=== PATIENT | male | born 1945 | race Caucasian/White ===

== ENCOUNTER → 2022-04-26 13:31 | Outpatient (CLI) | payer MEDICARE, SELFPAY ==
--- NOTE | ~2022-04-26 | XR_ITS ---
EXAM: [id number] DATE: 04/26/2022 14:00 HISTORY: Pain in left knee . COMPARISON: None available. FINDINGS: Normal mineralization. No fracture or dislocation. No lytic or blastic lesion. Mild medial joint space narrowing. Tricompartmental osteophytosis. Chondrocalcinosis. Minimal quadriceps entheso frederick. Small volume joint fluid collection. No erosion or periosteal change. Vascular calcifications. IMPRESSION: Mild tricompartmental left knee arthritis. Small left knee joint effusion. Reviewed, dictated and finalized at location [facility]. EY DOCTOR IMPRESSION: Mild tricompartmental left knee arthritis. Small left knee joint ef fusion.
== END ==
PROVIDERS: PCP Family Medicine Adolescent Medicine; Visit Provider Family Medicine Adolescent Medicine
DX: M17.12 Unilateral primary osteoarthritis, left knee (principal); M25.462 Effusion, left knee
CPT/HCPCS: 73560

== ENCOUNTER → 2022-05-05 10:00 | Outpatient (CLI) | payer MEDICARE, SELFPAY ==
--- NOTE | ~2022-05-05 | MR_ITS ---
MRI of the left knee Clinical history: Pain Technique: Coronal proton density and proton density-weighted images, sagittal proton-density and T2 fat-sat images, and axial proton-density fat-saturated images were acquired. Findings: Anterior and posterior cruciate ligaments are intact. Medial collateral ligament and the la teral collateral ligament complex are intact. Popliteus tendon is intact. No lateral meniscal tear identified. Probable subtle undersurface tear of the posterior horn of the m edial meniscus present. There is mild chondromalacia at the medial and lateral joint lines. 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 There is mild chondromalacia patella. Bone marrow signals are unre markable. Extensor mechanism is intact. Minimal joint effusion present. No Salomon's cyst. Impression: Probable subtle undersurface tear of the posterior horn of the medial meniscus. Mild chondromalacia, as detailed above. Minimal joint effusion. Reviewed, dictated and finalized at [facility]. [employer] NURSE NAVIGATOR Impression: Probable subtle undersurface tear of the posterior horn of the medial meniscus. Mild chondromalacia, as detailed above. Minimal joint effusion.
== END ==
PROVIDERS: PCP Family Medicine Adolescent Medicine; Visit Provider Family Medicine Adolescent Medicine
DX: M25.562 Pain in left knee (principal)
CPT/HCPCS: 73721